=== PATIENT | male | born 1960 | race Native Hawaiian/Other Pacific Islander ===

== ENCOUNTER 2017-11-25 11:46 | Outpatient (CLI) | payer OTHER ==
[2017-11-25 12:42] LABS: PLATELET COUNT 212 K/uL (142-355)
[2017-11-25 13:07] LABS: POTASSIUM 3.5 mmol/L (3.6-5.2)
== END 2017-11-25 19:14 | disposition home or self-care (01) ==
LOC: LABW 11:46
PROVIDERS: Student in an Organized Health Care Education/Training Program
DX: E78.2 Mixed hyperlipidemia (principal); R11.2 Nausea with vomiting, unspecified; R53.83 Other fatigue
CPT/HCPCS: 36415; 80053; 80061; 84153; 84402; 84403; 84439; 84443; 85027